=== PATIENT | male | born 1980 | race Caucasian/White ===

== ENCOUNTER → 2017-11-23 10:50 | Outpatient (POV) | payer MEDICAID, SELFPAY ==
[2017-11-23 11:19] VITALS: BP 128/80; PULSE 86; RESP 18; TEMP 36.8; O2SAT 98; BMI 27.7
--- NOTE | 2017-11-23 12:36 | HMH.PAINSOAP ---
[facility] Pain Management SOAP Note Subjective:: This patient is a pleasant 37-year-old white male who presents today to discuss recent insurance denial of his spinal cord stimulator trial. Patient has had a long-term low back pain after work injury that has resulted in lumbar back pain and lumbar radiculopathy. Patient has seen multiple providers. Patient is not currently a surgical candidate. Patient is having the majority of his pain down his right leg. Patient has spoken with several physicians including Dr. ANTONY Watson and Dr. Earl about spinal cord stimulation. He wishes to pursue this as a long-term solution to his pain. He would like to become more functional. Patient rates his pain as 7 out of 10 today. Patient has tried and failed 6-8 weeks of physical therapy. She has also tried and failed the dural steroid injections and facet joint injections. Spinal cord stimulation was suggested by his physician and psychologist back in 2012. To help relieve his pain and become more functional without the use of medications. Patient does not like the feeling of taking medications and states that it messes with his head. Patient also has a history of narcolepsy and the increased risk of sleepiness with his narcotics may create a problem. Patient states that his pain is achy and constant and shooting at times through his legs. ROS General: no recent weight change, no fever, narcolepsy Respiratory: no cough, no shortness of air, no recurring pulmonary infections Cardiovascular/Peripheral Vascular: No chest pain, No palpitations, no edema, no shortness of breath. Gastrointestinal: no incontinence, normal bowel movements reported Genitourinary: no incontinence Musculoskeletal: Low back pain, bilateral leg pain Psychiatric: normal mood/ affect Neurological: [denies weakness in extremities], [denies balance issues] Objective:: Physical Exam General: Alert and oriented x3, no acute distress, pleasant and cooperative, [on room air] Lungs: Resps E/U, Symmetrical chest expansion, Musculoskeletal: Flexion and extension of lumbar spine somewhat guarded secondary to pain, deep tendon reflexes normal, strength in upper and lower extremities [5/5], [abnormal gait noted] Neurological: speech clear, contract analyst equal, no gross sensory deficits Assessment:: Lumbar neuritis, degenerative disc disease of the lumbar spine, narcolepsy, lumbar radiculopathy Plan:: I believe spinal cord stimulation would be a good option for this patient. Help alleviate his pain and make him more functional. I believe that the spinal cord stimulator will be very effective in relieving his pain. We discussed different companies. Patient would like to pursue a Nuvectra trial. Given the patient's failure of physical therapy, medication therapy, anti-inflammatory, and injective therapy I believe that this may be the next step for the patient. Patient has seen neurology in the past with no relief of symptoms. This note was dictated using voice recognition software may contain errors or omissions
--- NOTE | 2017-11-23 12:47 | P.CONS_ITS ---
[facility] Pain Management SOAP Note Subjective:: This patient is a pleasant 37-year-old white male who presents today to discuss recent insurance denial of his spinal cord stimulator trial. Patient has had a long-term low back pain after work injury that has resulted in lumbar back pain and lumbar radiculopathy. Patient has seen multiple providers. Patient is not currently a surgical candidate. Patient is having the majority of his pain down his right leg. Patient has spoken with several physicians including Dr. ANTONY Watson and Dr. Earl about spinal cord stimulation. He wishes to pursue this as a long-term solution to his pain. He would like to become more functional. Patient rates his pain as 7 out of 10 today. Patient has tried and failed 6-8 weeks of physical therapy. She has also tried and failed the dural steroid injections and facet joint injections. Spinal cord stimulation was suggested by his physician and psychologist back in 2012. To help relieve his pain and become more functional without the use of medications. Patient does not like the feeling of taking medications and states that it messes with his head. Patient also has a history of narcolepsy and the increased risk of sleepiness with his narcotics may create a problem. Patient states that his pain is achy and constant and shooting at times through his legs. ROS General: no recent weight change, no fever, narcolepsy Respiratory: no cough, no shortness of air, no recurring pulmonary infections Cardiovascular/Peripheral Vascular: No chest pain, No palpitations, no edema, no shortness of breath. Gastrointestinal: no incontinence, normal bowel movements reported Genitourinary: no incontinence Musculoskeletal: Low back pain, bilateral leg pain Psychiatric: normal mood/ affect Neurological: [denies weakness in extremities], [denies balance issues] Objective:: Physical Exam General: Alert and oriented x3, no acute distress, pleasant and cooperative, [ on room air] Lungs: Resps E/U, Symmetrical chest expansion, Musculoskeletal: Flexion and extension of lumbar spine somewhat guarded secondary to pain, deep tendon reflexes normal, strength in upper and lower extremities [5/5], [abnormal gait noted] Neurological: speech clear, firer bisque kiln equal, no gross sensory deficits Assessment:: Lumbar neuritis, degenerative disc disease of the lumbar spine, narcolepsy, lumbar radiculopathy Plan:: I believe spinal cord stimulation would be a good option for this patient. Help alleviate his pain and make him more functional. I believe that the spinal cord stimulator will be very effective in relieving his pain. We discussed different companies. Patient would like to pursue a Nuvectra trial. Given the patient's failure of physical therapy, medication therapy, anti- inflammatory, and injective therapy I believe that this may be the next step for the patient. Patient has seen neurology in the past with no relief of symptoms. This note was dictated using voice recognition software may contain errors or omissions
== END ==
PROVIDERS: Family Provider Internal Medicine Adolescent Medicine; PCP Internal Medicine Adolescent Medicine; Visit Provider Clinical Nurse Specialist Family Health
DX: M54.16 Radiculopathy, lumbar region (principal)
CPT/HCPCS: 99212

== ENCOUNTER 2017-12-17 11:29 | Emergency (ER) | payer MEDICAID, SELFPAY ==
[2017-12-17 11:34] VITALS: BP 140/80; PULSE 106; RESP 20; TEMP 36.9; O2SAT 97; BMI 28.1
--- NOTE | 2017-12-17 12:53 | HMH.EDBACK ---
ED Disposition Clinical Impression: Back pain Qualifiers: Back pain location: low back pain Chronicity: acute Back pain laterality: bilateral Sciatica presence: with sciatica Sciatica laterality: bilateral sciatica Qualified Code(s): M54.42 - Lumbago with sciatica, left side; M54.41 - Lumbago with sciatica, right side Disposition: Home, Self-Care Condition on Discharge: Good Instructions: DI for Low Back Pain Prescriptions: Ketorolac Tromethamine [Toradol 10mg tablet] 10 mg PO Q6H 5 Days #20 tab methylPREDNISolone [Medrol] 4 mg PO DIRECTED #1 tab.ds.pk Referrals: Sandro Arora MD [Primary Care Provider] - - Critical Care Critical Care Time: No Attestation: On 12/17/17, the high probability of a clinically significant, sudden or life threatening deterioration of the following system(s) required my full and direct attention, intervention and personal management. The time I documented below is in addition to time spent performing reported procedures but includes the following listed in this critical care notation. Medical Decision Making - Gerard Inquiry Pt receiving controlled substance: No Gerard was queried for this patient: No Vital Signs: 12/17/17 11:34 Temperature 98.4 F Temperature Source Oral Pulse Rate [Right Radial] 106 H Respiratory Rate 20 Blood Pressure [Left Arm] 140/80 Blood Pressure Mean [Left Arm] 100 Blood Pressure Source [Left Arm] Automatic Cuff Blood Pressure Position [Left Arm] Supine 02 Sat by Pulse Oximetry 97 Oxygen Delivery Method Room Air Orders (Tests/Meds): ED MEDICATIONS Discontinued Medications Generic Name Dose Route Start Last Admin Trade Name Cortney PRN Reason Stop Dose Admin Ketorolac Tromethamine 60 mg 12/17/17 12:57 12/17/17 13:16 Toradol 60mg/2ml Vial IM 12/17/17 12:58 60 mg ONCE ONE Administration Medical Decision Narrative: his back pain is a cute exacrbation chronic back issues, as for his facial pain diagnoses include TMJ and Trigeminal neuralgia, no evidence glaucoma Back Pain HPI - General Chief Complaint: Back Pain/Injury Stated Complaint: back went out, no ao Time Seen by Provider: 12/17/17 12:00 Mode of Arrival: Ambulatory Source of Information: Patient Limitations: No Limitations Description of Symptoms (Recalled from ER Triage Doc. by RN): pain in lower back that radiates down left leg. history of disc herniations. pain in left holiness and down face that is painful to the touch. - History of Present Illness MD Complaint: back pain Onset (ago): hour(s) (4) Duration: constant Similar Symptoms Previously: Yes Location: lumbar spine Severity: moderate Quality: dull, aching Radiation: left leg Severity scale (1-10): 8 Exacerbating factors: immobilization Context: turning/twisting Associated symptoms: denies other symptoms Pertinent Issues R/T Back Pain: Vertebrae or disk problems w/o surgical repair Treatments prior to arrival: other medications - Related Data Home Medications Medication Instructions Recorded Confirmed Baclofen 10 mg PO TIDP PRN 12/17/17 12/17/17 Duloxetine HCl [Cymbalta] 60 mg PO HS 12/17/17 12/17/17 Gabapentin [Gabapentin 800mg Tab] 900 mg PO TID 12/17/17 12/17/17 Previous Rx's Medication Instructions Recorded Ketorolac Tromethamine [Toradol 10 mg PO Q6H 5 Days #20 tab 12/17/17 10mg tablet] methylPREDNISolone [Medrol] 4 mg PO DIRECTED #1 tab.ds.pk 12/17/17 Allergies Allergy/AdvReac Type Severity Reaction Status Date / Time No Known Allergies Allergy Unverified 09/21/17 14:55 [facility] History I have reviewed the patient's past medical history: Yes Medical History: Reports:: MRSA Denies:: Cancer, Diabetes Mellitus Type 1, Diabetes Mellitus Type 2 Amputation: No - Social History Smoking Status: Current every day smoker Tobacco Type: cigarettes # Packs/Day (cigarettes): 1 Alcohol Intake: never - Psychiatric History Expresses thoughts of harming self/others
--- NOTE | 2017-12-17 12:56 | ED_ITS ---
ED Disposition Clinical Impression: Back pain Qualifiers: Back pain location: low back pain Chronicity: acute Back pain laterality: bilateral Sciatica presence: with sciatica Sciatica laterality: bilateral sciatica Qualified Code(s): M54.42 - Lumbago with sciatica, left side; M54.41 - Lumbago with sciatica, right side Disposition: Home, Self-Care Condition on Discharge: Good Instructions: DI for Low Back Pain Prescriptions: Ketorolac Tromethamine [Toradol 10mg tablet] 10 mg PO Q6H 5 Days #20 tab methylPREDNISolone [Medrol] 4 mg PO DIRECTED #1 tab.ds.pk Referrals: Sandro Arora MD [Primary Care Provider] - - Critical Care Critical Care Time: No Attestation: On 12/17/17, the high probability of a clinically significant, sudden or life threatening deterioration of the following system(s) required my full and direct attention, intervention and personal management. The time I documented below is in addition to time spent performing reported procedures but includes the following listed in this critical care notation. Medical Decision Making - Gerard Inquiry Pt receiving controlled substance: No Gerard was queried for this patient: No Vital Signs: 12/17/17 11:34 Temperature 98.4 F Temperature Source Oral Pulse Rate [Right Radial] 106 H Respiratory Rate 20 Blood Pressure [Left Arm] 140/80 Blood Pressure Mean [Left Arm] 100 Blood Pressure Source [Left Arm] Automatic Cuff Blood Pressure Position [Left Arm] Supine 02 Sat by Pulse Oximetry 97 Oxygen Delivery Method Room Air Orders (Tests/Meds): ED MEDICATIONS Discontinued Medications Generic Name Dose Route Start Last Admin Trade Name Cortney PRN Reason Stop Dose Admin Ketorolac Tromethamine 60 mg 12/17/17 12:57 12/17/17 13:16 Toradol 60mg/2ml Vial IM 12/17/17 12:58 60 mg ONCE ONE Administration Medical Decision Narrative: his back pain is a cute exacrbation chronic back issues, as for his facial pain diagnoses include TMJ and Trigeminal neuralgia, no evidence glaucoma Back Pain HPI - General Chief Complaint: Back Pain/Injury Stated Complaint: back went out, no ao Time Seen by Provider: 12/17/17 12:00 Mode of Arrival: Ambulatory Source of Information: Patient Limitations: No Limitations Description of Symptoms (Recalled from ER Triage Doc. by RN): pain in lower back that radiates down left leg. history of disc herniations. pain in left taoist and down face that is painful to the touch. - History of Present Illness MD Complaint: back pain Onset (ago): hour(s) (4) Duration: constant Similar Symptoms Previously: Yes Location: lumbar spine Severity: moderate Quality: dull, aching Radiation: left leg Severity scale (1-10): 8 Exacerbating factors: immobilization Context: turning/twisting Associated symptoms: denies other symptoms Pertinent Issues R/T Back Pain: Vertebrae or disk problems w/o surgical repair Treatments prior to arrival: other medications - Related Data Home Medications Medication Instructions Recorded Confirmed Baclofen 10 mg PO TIDP PRN 12/17/17 12/17/17 Duloxetine HCl [Cymbalta] 60 mg PO HS 12/17/17 12/17/17 Gabapentin [Gabapentin 800mg Tab] 900 mg PO TID 12/17/17 12/17/17 Previous Rx's Medication Instructions Recorded Ketorolac Tromethamine [Toradol 10 mg PO Q6H
[2017-12-17 14:10] VITALS: BP 127/75; PULSE 72; RESP 20; TEMP 37.1; O2SAT 96
== END 2017-12-17 14:13 | disposition home or self-care (01) ==
PROVIDERS: Emergency Provider Family Medicine; Family Provider Internal Medicine Adolescent Medicine; PCP Internal Medicine Adolescent Medicine
DX: M54.42 Lumbago with sciatica, left side (principal); F17.210 Nicotine dependence, cigarettes, uncomplicated; Z86.14 Personal history of Methicillin resistant Staphylococcus aureus infection
CPT/HCPCS: 96372; 99281

== ENCOUNTER → 2018-01-10 13:27 | Outpatient (CLI) | payer MEDICAID, SELFPAY ==
[2018-01-10 14:13] LABS: Basophils % 0.4 % (0.1-2.0); Eosinophils # 0.2 K/mm3 (0.0-0.4); Eosinophils % 2.1 % (0.1-12.0); Hemoglobin 15.3 g/dL (14.1-18.0); Lymphocytes # 2.8 K/mm3 (0.7-4.5); Mean Corpuscular HGB Conc 32.5 g/dL (31.8-35.4); Mean Corpuscular Hemoglobin 30.2 pg (27.0-31.2); Mean Platelet Volume 7.7 fl (7.4-10.4); Monocytes # 0.4 K/mm3 (0.1-1.0); Monocytes % 5.3 % (1.7-9.3); Neutrophils # 4.7 K/mm3 (1.8-7.8); Neutrophils % 58.3 % (37.0-80.0); Platelet Count 268 K/mm3 (142-424); Red Blood Count 5.06 M/mm3 (4.60-6.20); Red Cell Distribution Width 12.6 % (11.5-17.5); White Blood Count 8.1 K/mm3 (4.8-10.8)
[2018-01-10 14:39] LABS: Anion Gap 12.4 mEq/L (5-15); Blood Urea Nitrogen 10 mg/dL (7-18); Carbon Dioxide 31 mmol/L (21.0-32.0); Chloride 102 mmol/L (98-107); Creatinine,Serum 0.86 mg/dL (0.70-1.30); Estimated Glomerular Filt Rate 100 ml/min (>60); GFR (African American) 120 ML/MIN (>60); Glucose 92 mg/dL (74-106); Potassium 4.4 mmoL/L (3.5-5.1); Sodium 141 mmol/L (136-145)
== END ==
PROVIDERS: Visit Provider Clinical Nurse Specialist Family Health
DX: Z01.812 Encounter for preprocedural laboratory examination (principal)
CPT/HCPCS: 36415; 80048; 85025

== ENCOUNTER → 2018-01-17 14:26 | Outpatient (POV) | payer MEDICAID, SELFPAY ==
[2018-01-17 14:46] VITALS: BP 99/50; PULSE 71; RESP 20; BMI 26.7
--- NOTE | 2018-01-17 15:58 | HMH.PMPROC ---
- Procedure Date: 01/17/18 Time: 14:46 Anesthesiologist:: Radha Rose APRN Complications:: None Pre-procedure Diagnosis:: Lumbar neuritis, degenerative disc disease of the lumbar spine, lumbar radiculopathy Post-procedure Diagnosis:: Lumbar neuritis, degenerative disc disease of the lumbar spine, lumbar radiculopathy Indications for Procedure:: Patient is a pleasant 37-year-old white male who presents today for epidural spinal cord stimulator trial lead removal. Patient has had a long-term low back pain after work injury. Patient has seen multiple providers and spoken with several of them about neuro stimulation. He wishes to pursue this as a long solution for his pain. Patient states that with a neurostimulator his pain is a 1 out of 10 today. Patient has tried and failed 6-8 weeks of physical therapy, steroid injections and facet joint injections, medications. Procedure Details:: Informed consent was obtained and the risks and benefits of the procedure were explained to the patient. The patient was taken to the procedure room where noninvasive monitoring was placed including noninvasive blood pressure cuff and O2 monitor. Patient was positioned in a standing position leaning forward. The bandage was removed from the leads and the area was cleansed with chlorhexidine as a cleansing solution. The leads were removed in their entirety. Patient's leads were intact. Insertion site has no sign/symptoms of infection. Bandages were placed over the site. And tolerated the procedure well Plan and Disposition:: We will go ahead and schedule this patient for neurostimulator implant. Patient has done extremely well with it. Patient had 80-90% relief of all of his pain symptoms. Patient's tried and failed anti-inflammatories, medications, injections, physical therapy, previous surgery. Patient has had a successful neuropsychological evaluation. He has a history of narcolepsy and his risk of sleepiness with narcotics which is creates a problem for his pain management. I believe that this will be the answer to long-term functionality. This note was dictated using voice recognition software and may contain errors or omissions
--- NOTE | 2018-01-17 16:01 | P.PCN_ITS ---
- Procedure Date: 01/17/18 Time: 14:46 Anesthesiologist:: aRdha Rose APRN Complications:: None Pre-procedure Diagnosis:: Lumbar neuritis, degenerative disc disease of the lumbar spine, lumbar radiculopathy Post-procedure Diagnosis:: Lumbar neuritis, degenerative disc disease of the lumbar spine, lumbar radiculopathy Indications for Procedure:: Patient is a pleasant 37-year-old white male who presents today for epidural spinal cord stimulator trial lead removal. Patient has had a long-term low back pain after work injury. Patient has seen multiple providers and spoken with several of them about neuro stimulation. He wishes to pursue this as a long solution for his pain. Patient states that with a neurostimulator his pain is a 1 out of 10 today. Patient has tried and failed 6-8 weeks of physical therapy, steroid injections and facet joint injections, medications. Procedure Details:: Informed consent was obtained and the risks and benefits of the procedure were explained to the patient. The patient was taken to the procedure room where noninvasive monitoring was placed including noninvasive blood pressure cuff and O2 monitor. Patient was positioned in a standing position leaning forward. The bandage was removed from the leads and the area was cleansed with chlorhexidine as a cleansing solution. The leads were removed in their entirety. Patient's leads were intact. Insertion site has no sign/symptoms of infection. Bandages were placed over the site. And tolerated the procedure well Plan and Disposition:: We will go ahead and schedule this patient for neurostimulator implant. Patient has done extremely well with it. Patient had 80-90% relief of all of his pain symptoms. Patient's tried and failed anti-inflammatories, medications , injections, physical therapy, previous surgery. Patient has had a successful neuropsychological evaluation. He has a history of narcolepsy and his risk of sleepiness with narcotics which is creates a problem for his pain management. I believe that this will be the answer to long-term functionality. This note was dictated using voice recognition software and may contain errors or omissions
== END ==
PROVIDERS: Family Provider Internal Medicine Adolescent Medicine; PCP Internal Medicine Adolescent Medicine; Visit Provider Clinical Nurse Specialist Family Health
DX: M51.16 Intervertebral disc disorders with radiculopathy, lumbar region (principal)
CPT/HCPCS: 99212

== ENCOUNTER → 2018-02-08 10:24 | Outpatient (POV) | payer MEDICAID, SELFPAY ==
[2018-02-08 11:07] VITALS: BP 153/100; PULSE 78; RESP 20; BMI 26.7
--- NOTE | 2018-02-08 12:29 | HMH.PAINSOAP ---
[facility] Pain Management SOAP Note Subjective:: This patient is a pleasant 37-year-old white male who presents today for follow-up after neurostimulator implant. Patient is currently doing very well he states that he is 90-100% pain-free. Patient has had his stitches removed and the site are intact, clean and dry, with no sign symptoms of infection. Patient is doing extremely well. We discussed continuing to do light activity. ROS General: no recent weight change, no fever, no sleep disturbances Respiratory: no cough, no shortness of air, no recurring pulmonary infections Cardiovascular/Peripheral Vascular: No chest pain, No palpitations, no edema, no shortness of breath. Gastrointestinal: no incontinence, normal bowel movements reported Genitourinary: no incontinence Musculoskeletal: Back pain, bilateral leg pain Psychiatric: normal mood/ affect Neurological: [denies weakness in extremities], [denies balance issues] Objective:: Physical Exam General: Alert and oriented x3, no acute distress, pleasant and cooperative, [on room air] Lungs: Resps E/U, Symmetrical chest expansion, Eyes: PERRL Musculoskeletal: Flexion and extension of lumbar spine somewhat guarded secondary to pain, deep tendon reflexes normal, strength in upper and lower extremities [5/5], normal gait noted Neurological: speech clear, heel top lift splitter equal, no gross sensory deficits Assessment:: Degenerative disc disease of the lumbar spine with lumbar radiculopathy symptoms and postlaminectomy syndrome of the lumbar spine Plan:: I will follow-up with this patient in 1 month to ensure he is healing well. And then we will follow-up with him every 3-6 months as needed. Patient has been instructed to call the office if he needs anything prior to his visit. This note was dictated using voice recognition software and may contain errors or omissions
--- NOTE | 2018-02-08 12:32 | P.CONS_ITS ---
[facility] Pain Management SOAP Note Subjective:: This patient is a pleasant 37-year-old white male who presents today for follow- up after neurostimulator implant. Patient is currently doing very well he states that he is 90-100% pain-free. Patient has had his stitches removed and the site are intact, clean and dry, with no sign symptoms of infection. Patient is doing extremely well. We discussed continuing to do light activity. ROS General: no recent weight change, no fever, no sleep disturbances Respiratory: no cough, no shortness of air, no recurring pulmonary infections Cardiovascular/Peripheral Vascular: No chest pain, No palpitations, no edema, no shortness of breath. Gastrointestinal: no incontinence, normal bowel movements reported Genitourinary: no incontinence Musculoskeletal: Back pain, bilateral leg pain Psychiatric: normal mood/ affect Neurological: [denies weakness in extremities], [denies balance issues] Objective:: Physical Exam General: Alert and oriented x3, no acute distress, pleasant and cooperative, [ on room air] Lungs: Resps E/U, Symmetrical chest expansion, Eyes: PERRL Musculoskeletal: Flexion and extension of lumbar spine somewhat guarded secondary to pain, deep tendon reflexes normal, strength in upper and lower extremities [5/5], normal gait noted Neurological: speech clear, cook supervisor equal, no gross sensory deficits Assessment:: Degenerative disc disease of the lumbar spine with lumbar radiculopathy symptoms and postlaminectomy syndrome of the lumbar spine Plan:: I will follow-up with this patient in 1 month to ensure he is healing well. And then we will follow-up with him every 3-6 months as needed. Patient has been instructed to call the office if he needs anything prior to his visit. This note was dictated using voice recognition software and may contain errors or omissions
== END ==
PROVIDERS: Family Provider Internal Medicine Adolescent Medicine; PCP Internal Medicine Adolescent Medicine; Visit Provider Clinical Nurse Specialist Family Health
DX: M54.16 Radiculopathy, lumbar region (principal)
CPT/HCPCS: 99212

== ENCOUNTER → 2018-03-08 08:30 | Outpatient (POV) | payer MEDICAID, SELFPAY ==
[2018-03-08 08:53] VITALS: BP 160/98; PULSE 71; RESP 20; O2SAT 98; BMI 26.9
--- NOTE | 2018-03-08 09:15 | HMH.PAINSOAP ---
[facility] Pain Management SOAP Note Subjective:: Patient pleasant 37-year-old white male who presents today for follow-up. Patient had neurostimulator implant. Patient states he is 90-100% pain-free. Patient cites are healed and have no sign symptoms of infection. Patient is doing extremely well. Patient rates his pain a 1 out of 10 today. ROS General: no recent weight change, no fever, no sleep disturbances Respiratory: no cough, no shortness of air, no recurring pulmonary infections Cardiovascular/Peripheral Vascular: No chest pain, No palpitations, no edema, no shortness of breath. Gastrointestinal: no incontinence, normal bowel movements reported Genitourinary: no incontinence Musculoskeletal: Back pain, bilateral leg pain Psychiatric: normal mood/ affect Neurological: [denies weakness in extremities], [denies balance issues] Objective:: Physical Exam General: Alert and oriented x3, no acute distress, pleasant and cooperative, [on room air] Lungs: Resps E/U, Symmetrical chest expansion, Eyes: PERRL Musculoskeletal: Flexion and extension of lumbar spine somewhat guarded secondary to pain, deep tendon reflexes normal, strength in upper and lower extremities [5/5], normal gait noted Neurological: speech clear, supervisor slate splitting equal, no gross sensory deficits Assessment:: Degenerative disc disease of lumbar spine with lumbar radiculopathy symptoms and postlaminectomy syndrome of the lumbar spine Plan:: I will follow-up with this patient in 6 months. Patient is doing extremely well. He has been instructed to call the office if he needs anything prior to his visit. This note was dictated using voice recognition software and may contain errors or omissions
== END ==
PROVIDERS: Family Provider Internal Medicine Adolescent Medicine; PCP Internal Medicine Adolescent Medicine; Visit Provider Clinical Nurse Specialist Family Health
DX: M54.16 Radiculopathy, lumbar region (principal)
CPT/HCPCS: 99212

== ENCOUNTER → 2018-11-01 11:15 | Outpatient (POV) | payer MEDICAID, SELFPAY ==
[2018-11-01 11:28] VITALS: BP 131/89; PULSE 86; RESP 18; O2SAT 99; BMI 27.5
--- NOTE | 2018-11-01 12:21 | HMH.PAINSOAP ---
[facility] Pain Management SOAP Note Subjective:: Patient is a pleasant 38-year-old white male who presents today for follow-up. Patient is doing well with his neurostimulator stating that is very beneficial. He is here to get some programming done by the key account representative. Patient states his pain in his back is about a 6 out of 10 today. Patient states that his back pain has gotten quite severe in the last few days with activity. It has been sometime since he had an epidural steroid injection. I believe it would be beneficial for him. ROS General: no recent weight change, no fever, no sleep disturbances Respiratory: no cough, no shortness of air, no recurring pulmonary infections Cardiovascular/Peripheral Vascular: No chest pain, No palpitations, no edema, no shortness of breath. Gastrointestinal: no incontinence, normal bowel movements reported Genitourinary: no incontinence Musculoskeletal: Back pain, leg pain at times Psychiatric: normal mood/ affect Neurological: [denies weakness in extremities], [denies balance issues] Objective:: Physical Exam General: Alert and oriented x3, no acute distress, pleasant and cooperative, [on room air] Lungs: Resps E/U, Symmetrical chest expansion, Eyes: PERRL Musculoskeletal: Flexion and extension of lumbar spine somewhat guarded secondary to pain, deep tendon reflexes normal, strength in upper and lower extremities [5/5], slightly antalgic gait noted, positive straight leg raise test bilaterally at 30 degrees Neurological: speech clear, paper hanger equal, no gross sensory deficits Assessment:: Degenerative disc disease lumbar spine with lumbar radiculopathy symptoms and postlaminectomy syndrome lumbar spine Plan:: Patient will be reprogrammed today by the key account representative. Patient will be set up for an L4-L5 lumbar epidural steroid injection given his symptomology I believe it would be beneficial. He is continuing with his anti-inflammatories and home stretching routine. He is not on any anticoagulation therapy I will follow-up with him after his injection. Dr. Lai has reviewed this note and agrees with this plan of care. This note was dictated using voice recognition software and may contain errors or omissions
== END ==
PROVIDERS: PCP Internal Medicine Adolescent Medicine; Visit Provider Clinical Nurse Specialist Family Health
DX: M51.16 Intervertebral disc disorders with radiculopathy, lumbar region (principal); M96.1 Postlaminectomy syndrome, not elsewhere classified
CPT/HCPCS: 99213

== ENCOUNTER → 2018-12-12 12:50 | Outpatient (POV) | payer MEDICAID, SELFPAY ==
--- NOTE | 2018-12-12 12:59 | HMH.PAINSOAP ---
[facility] Pain Management SOAP Note Subjective:: Patient is a pleasant 38-year-old white male who presents today for follow-up after lumbar epidural steroid injection. Patient states he got 80% relief rating his pain a 5 out of 10 today. He states he is much more functional. Patient has had this relief for over a month. Patient still having some relief however he would like to try to get some additional decrease in his pain. Patient is continuing a home stretching program and is on anti-inflammatories. ROS General: no recent weight change, no fever, no sleep disturbances Respiratory: no cough, no shortness of air, no recurring pulmonary infections Cardiovascular/Peripheral Vascular: No chest pain, No palpitations, no edema, no shortness of breath. Gastrointestinal: no incontinence, normal bowel movements reported Genitourinary: no incontinence Musculoskeletal: Back pain, leg pain at times Psychiatric: normal mood/ affect Neurological: [denies weakness in extremities], [denies balance issues] Objective:: Physical Exam General: Alert and oriented x3, no acute distress, pleasant and cooperative, [on room air] Lungs: Resps E/U, Symmetrical chest expansion, Eyes: PERRL Musculoskeletal: Flexion and extension of lumbar spine somewhat guarded secondary to pain, deep tendon reflexes normal, strength in upper and lower extremities [5/5], slightly antalgic gait noted Neurological: speech clear, still worker helper equal, no gross sensory deficits Assessment:: Degenerative disc disease lumbar spine with lumbar radiculopathy Plan:: We will repeat his L4-L5 lumbar epidural steroid injection given the efficacy of the last one. He is not on any anticoagulation therapy. He is continuing home stretching routine. I will follow-up with the patient after his injection and reassess his symptoms at that time. Dr. Lai has reviewed this note and agrees with this plan of care. This note was dictated using voice recognition software and may contain errors or omissions
[2018-12-12 13:06] VITALS: BP 150/98; PULSE 78; RESP 18; O2SAT 98; BMI 27.5
== END ==
PROVIDERS: PCP Internal Medicine Adolescent Medicine; Visit Provider Clinical Nurse Specialist Family Health
DX: M51.16 Intervertebral disc disorders with radiculopathy, lumbar region (principal)
CPT/HCPCS: 99213

== ENCOUNTER → 2019-01-17 10:12 | Outpatient (POV) | payer MEDICAID, SELFPAY ==
[2019-01-17 10:23] VITALS: BP 149/97; PULSE 95; RESP 18; O2SAT 98; BMI 27.5
--- NOTE | 2019-01-17 10:47 | HMH.PAINSOAP ---
[facility] Pain Management SOAP Note Subjective:: Is a pleasant 38-year-old white male who presents today for follow-up after lumbar epidural steroid injection. Patient is doing well with his neurostimulator. Patient had 80% relief with his epidural. Patient overall doing well. He would like to repeat this. ROS General: no recent weight change, no fever, no sleep disturbances Respiratory: no cough, no shortness of air, no recurring pulmonary infections Cardiovascular/Peripheral Vascular: No chest pain, No palpitations, no edema, no shortness of breath. Gastrointestinal: no incontinence, normal bowel movements reported Genitourinary: no incontinence Musculoskeletal: Back pain, leg pain Psychiatric: normal mood/ affect Neurological: [denies weakness in extremities], [denies balance issues] Objective:: Physical Exam General: Alert and oriented x3, no acute distress, pleasant and cooperative, [on room air] Lungs: Resps E/U, Symmetrical chest expansion, Eyes: PERRL Musculoskeletal: Flexion and extension of lumbar spine somewhat guarded secondary to pain, deep tendon reflexes normal, strength in upper and lower extremities [5/5], antalgic gait noted, positive straight leg raise test at 30 degrees Neurological: speech clear, radio frequency engineer equal, no gross sensory deficits Assessment:: Degenerative disc disease lumbar spine with lumbar radiculopathy Plan:: We will schedule a third lumbar epidural steroid injection for the patient. This will be at L4-L5. Patient is done extremely well with these. He would like to finish out the set of 3. I believe this is appropriate. I will follow-up with him after his injection and reassess his symptoms at that time. Dr. Lai has reviewed this note and agrees with this plan of care. This note was dictated using voice recognition software and may contain errors or omissions
--- NOTE | 2019-01-17 10:50 | P.CONS_ITS ---
[facility] Pain Management SOAP Note Subjective:: Is a pleasant 38-year-old white male who presents today for follow-up after lumbar epidural steroid injection. Patient is doing well with his neurostimulator. Patient had 80% relief with his epidural. Patient overall doing well. He would like to repeat this. ROS General: no recent weight change, no fever, no sleep disturbances Respiratory: no cough, no shortness of air, no recurring pulmonary infections Cardiovascular/Peripheral Vascular: No chest pain, No palpitations, no edema, no shortness of breath. Gastrointestinal: no incontinence, normal bowel movements reported Genitourinary: no incontinence Musculoskeletal: Back pain, leg pain Psychiatric: normal mood/ affect Neurological: [denies weakness in extremities], [denies balance issues] Objective:: Physical Exam General: Alert and oriented x3, no acute distress, pleasant and cooperative, [on room air] Lungs: Resps E/U, Symmetrical chest expansion, Eyes: PERRL Musculoskeletal: Flexion and extension of lumbar spine somewhat guarded secondary to pain, deep tendon reflexes normal, strength in upper and lower extremities [5/5], antalgic gait noted, positive straight leg raise test at 30 degrees Neurological: speech clear, poke in equal, no gross sensory deficits Assessment:: Degenerative disc disease lumbar spine with lumbar radiculopathy Plan:: We will schedule a third lumbar epidural steroid injection for the patient. This will be at L4-L5. Patient is done extremely well with these. He would like to finish out the set of 3. I believe this is appropriate. I will follow- up with him after his injection and reassess his symptoms at that time. Dr. Lai has reviewed this note and agrees with this plan of care. This note was dictated using voice recognition software and may contain errors or omissions
== END ==
PROVIDERS: PCP Internal Medicine Adolescent Medicine; Visit Provider Clinical Nurse Specialist Family Health
DX: M51.16 Intervertebral disc disorders with radiculopathy, lumbar region (principal)
CPT/HCPCS: 99212

== ENCOUNTER → 2019-06-12 10:46 | Outpatient (CLI) | payer MEDICAID, SELFPAY ==
--- NOTE | 2019-06-12 12:48 | CT_ITS ---
PROCEDURE: CT ANKLE LT WO/W CON CLINICAL HISTORY: Evaluate tear of ATFL,CFL and Deltoid Ligaments Foot pain following injury, left ankle pain and swelling COMPARISON: Ankle L from 05/15/2019 TECHNIQUE: Axial images obtained with sagittal and coronal reformats. All CT scans at the facility use one or more dose reduction, viz: automated exposure control, ma/kV adjustment per patient size (including targeted exams where dose is matched to indication, i.e. head), or iterative reconstruction technique. FINDINGS: There is a nondisplaced fracture extending from the posterior and lateral aspect of the posterior subtalar facet of the talus extending anteriorly in oblique fashion exiting medially at the talar neck. The fracture extends to the talar dome. No other fractures are evident. The Achilles tendon appears intact. There is a small ankle joint effusion. There is some soft tissue swelling laterally at the region of the ATFL and the PT FL. Cannot confirm the integrity of the talofibular or tibiofibular ligaments or of the deltoid ligament based on this exam. The posterior tibialis, flexor hallucis longus and flexor digitorum longus tendons have an unremarkable appearance. Partial tear is may not be seen by CT. The prone ill tendons are not adequately evaluated with CT inter somewhat obscured at the lateral malleolar region. IMPRESSION: Nondisplaced fracture of the talus with extension into the posterior subtalar joint, the neck of the talus, and the talar dome. Dictated by: Nimesh Knowles MD 06/13/2019 15:41 Electronically signed by Nimesh Knowles MD in [place] 06/13/2019 15:41
== END ==
PROVIDERS: PCP Internal Medicine Adolescent Medicine; Visit Provider Podiatrist
DX: M25.572 Pain in left ankle and joints of left foot (principal); S93.492D Sprain of other ligament of left ankle, subsequent encounter; S99.912D Unspecified injury of left ankle, subsequent encounter
CPT/HCPCS: 73702; Q9967

== ENCOUNTER 2021-09-14 16:33 | Emergency (ER) | payer OTHER, SELFPAY ==
[2021-09-14 16:45] VITALS: BP 148/89; PULSE 106; RESP 19; TEMP 36.9; O2SAT 99; BMI 25.7
--- NOTE | 2021-09-14 16:52 | XR_ITS ---
PROCEDURE INFORMATION: Exam: XR Lumbosacral Spine Exam date and time: 09/14/2021 4:52 PM Age: 41 years old Clinical indication: Injury or trauma; Fall; Blunt trauma (contusions or hematomas); Prior surgery; Surgery date: 6+ months; Surgery type: Spinal stimulator placed due to old injury to back; Patient HX: Patient missed a step and fell. Severe low back pain with difficulty ambulating. TECHNIQUE: Imaging protocol: XR of the lumbosacral spine. Views: 2 or 3 views. COMPARISON: LSWO CT LUMBAR SPINE W/O CONTRAST 04/23/2017 9:49 PM FINDINGS: Bones/joints: Normal. No acute fracture. Normal alignment. Soft tissues: Unremarkable. Dorsal column stimulator in good position. IMPRESSION: No acute findings.
--- NOTE | 2021-09-14 16:58 | HMH.EDUTC ---
[facility] [place] Clinical Impression: Back pain Qualifiers: Back pain location: low back pain Chronicity: acute Back pain laterality: left Sciatica presence: with sciatica Sciatica laterality: sciatica of left side Qualified Code(s): M54.42 - Lumbago with sciatica, left side Disposition: Home, Self-Care Condition on Discharge: Good Instructions: DI for Low Back Pain Additional Instructions: follow up with pcp for more testing if needed start steroid tomorrow ice and heat as needed tylenol or motrin as needed return if nay worsening or no improvement Prescriptions: predniSONE [Prednisone 20mg Tab] 20 mg PO BID #10 tab Transmission Status: Pending to [facility] Referrals: Michael Lane MD [Primary Care Provider] - Time of Disposition: 17:51 Medical Decision Making - Gerard Inquiry Pt receiving controlled substance: No Vital Signs: 09/14/21 16:45 Temperature 98.4 F Temperature Source Oral Pulse Rate [Right Brachial] 106 H Respiratory Rate 19 Blood Pressure [Right Arm] 148/89 H Blood Pressure Mean [Right Arm] 108 Blood Pressure Position [Right Arm] Sitting 02 Sat by Pulse Oximetry 99 [facility] [place] - General Chief complaint: Urgent Treatment Center Stated complaint: back pain Time Seen by Provider: 09/14/21 16:58 Mode of Arrival: Ambulatory Source of Information: Patient Limitations: No Limitations Description of Symptoms (Recalled from Triage Doc. by RN): PT STATES THAT WEDNESDAY NIGHT HE WENT TO STEP OFF OF HIS PORCH AND MISSED A STEP WHERE HE JERKED AND NOW FEELS LIKE HE MAY HAVE A HERNIATED DISC IN LOWER BACK WHICH IS A FREQUENT PROBLEM THAT REACCURES HEENT Symptoms (Recalled from RN notes): No Resp Symptoms (Recalled from RN notes): No Skin Symptoms (Recalled from RN notes): No MS Symptoms (Recalled from RN notes): Yes Functional Status (Recalled from RN notes): WNL - History of Present Illness Provider Complaint: 41 yr old male presents for low back pain. pt states on night he stepped off step and felt a jerk in low back. Pt states he has a herniated disk in back and this flares up at times. no loww of bowel or bladder - Related Data Home Medications Medication Instructions Recorded Confirmed Baclofen 10 mg PO TIDP PRN 12/17/17 06/14/19 Duloxetine HCl [Cymbalta] 60 mg PO HS 12/17/17 06/14/19 Gabapentin [Gabapentin 800mg Tab] 900 mg PO TID 12/17/17 06/14/19 Previous Rx's Medication Instructions Recorded Ibuprofen [Ibuprofen 600mg 600 mg PO Q6HP PRN #30 tab 05/15/19 Tablet] predniSONE [Prednisone 20mg 20 mg PO BID #10 tab 09/14/21 Tab] Allergies Allergy/AdvReac Type Severity Reaction Status Date / Time No Known Allergies Allergy Verified 06/14/19 14:21 - Worker's Comp Is this a Worker's Comp case?: No [facility] History - Hepatitis A Screen Drug use history?: No High risk sexual behaviors?: No History of sexually transmitted infection?: No Currently employed?: No Childcare worker?: No Do you have indoor plumbing?: Yes Do you have electricity?: Yes Attestation statement:: This patient has been screened for Hepatitis A risk factors. Medical History: Reports:: Chronic Obstructive Pulmonary Disease (COPD) Denies:: Cancer, Diabetes Mellitus Type 1, Diabetes Mellitus Type 2, MRSA, Seizures Other Medical History: Reports: Other. 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
[2021-09-14 18:00] VITALS: BP 148/89; PULSE 106; RESP 19; TEMP 36.9; O2SAT 99
== END 2021-09-14 18:11 | disposition home or self-care (01) ==
PROVIDERS: Emergency Provider Nurse Practitioner Family; PCP Emergency Medicine
DX: M54.42 Lumbago with sciatica, left side (principal); J44.9 Chronic obstructive pulmonary disease, unspecified; F17.210 Nicotine dependence, cigarettes, uncomplicated
CPT/HCPCS: 72100; 96372; 99202; G0463

== ENCOUNTER → 2022-06-10 08:57 | Outpatient (POV) | payer OTHER, SELFPAY ==
[2022-06-10 09:22] VITALS: BP 135/87; PULSE 80; RESP 18; TEMP 36.5; O2SAT 99; BMI 23.3
--- NOTE | 2022-06-10 09:40 | EXP.PAIN.OV ---
HPI Data of Consult Patient: new to practice Consult date: 06/10/22 Requesting Physician: Subha Leonardo APRN Consult Narrative Reason for consult: Low back pain, left leg and hip pain History of present illness: Mr. Galarza is a 41 year old male who presents as a new patient. He is a referral from Dr. Lane. Today the patient rates his pain a 4 out of 10 and states its in his low back that radiates into his left hip down his left leg and stops at the knee. Patient describes this as a ache, throbbing sensation that is worse with increased activity. Patient denies any new trauma or injury to the site. 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 Patient was a previous patient of ours in 2018 where he did have multiple injective therapies that provided significant improvement of his symptoms. Patient is managed with gabapentin 800 mg [address] Lane. Patient denies any side effects from these medications. He states these medications are adequately helping manage his pain. Patient is interested in injective therapy at this time. His Gerard is [phone]. It is been reviewed and appropriate. CC: Subha Leonardo APRN [facility] Medical History (Updated 06/10/22 @ 09:46 by Subha Leonardo APRN) ADD (attention deficit disorder) COPD (chronic obstructive pulmonary disease) DDD (degenerative disc disease), lumbar Hx MRSA infection Narcolepsy Surgical History (Updated 06/10/22 @ 09:36 by Brenna Merrill RN) Hx of tonsillectomy Social History Smoking Status: Current every day smoker tobacco type: cigarettes packs per day: 1 alcohol intake: never substance use type: denies use current occupational status: employed Travel in the last 8 weeks: None household members: family housing: house current occupation: [employer] current occupational exposures/hazards: No caffeine: No Review of Systems Review of Systems Review of systems:: pertinent systems reviewed and negative unless documented below Review of systems (narrative): Review of Systems: General: No recent weight changes, no fever, no sleep disturbances Respiratory: No cough, no shortness of air, no recurring pulmonary infections Cardiovascular/peripheral vascular: No chest pain, no palpitations, no edema, no shortness of breath Gastrointestinal: No new onset incontinence, normal bowel movements reported Genitourinary: No new onset incontinence Musculoskeletal: Low back pain, left leg and hip pain Psychiatric: [Normal mood/affect] Neurological: [Denies weakness in extremities], [denies balance issues] Meds Home Medications and Allergies Home Medications Medication Instructions Recorded Confirmed Type baclofen 20 mg tablet 10 mg PO TIDP PRN pain 12/17/17 06/10/22 History duloxetine 60 mg capsule,delayed 60 mg PO HS Pain 12/17/17 06/10/22 History release gabapentin 800 mg tablet 900 mg PO TID Pain 12/17/17 06/10/22 History ibuprofen 600 mg tablet 600 mg PO Q6HP PRN Mild Pain #30 05/15/19 06/10/22 Rx tabs prednisone 20 mg tablet 20 mg PO BID Pain 06/10/22 06/10/22 History New Prescriptions to Start Prescriptions: Allergies Allergy/AdvReac Type Severity Reaction Status Date / Time No Known Allergies Allergy Verified 06/14/19 14:21 Objective Vital signs: Temp Pulse Resp BP Pulse Ox 97.7 F 80 18 135/87 99 06/10/22 09:22 06/10/22 09:22 06/10/22 09:22 06/10/22 09:22 06/10/22 09:22 Narrative: Physical Exam: General: Alert and oriented x3, no acute distress, pleasant and cooperative Lungs: Respirations even and unlabored, symmetrical chest expansion Eyes: PERRL Musculoskeletal: Flexion and extension of lumbar [spine] somewhat guarded secondary to pain, [antalgic gait noted]. Point tenderness along the left SI and left hip and left Monique's, Coby's, compression, Gaenslen's and distraction exam Neuro
== END ==
PROVIDERS: Visit Provider Nurse Practitioner Family
DX: M51.36 Other intervertebral disc degeneration, lumbar region (principal); M47.816 Spondylosis without myelopathy or radiculopathy, lumbar region; M48.061 Spinal stenosis, lumbar region without neurogenic claudication; M46.1 Sacroiliitis, not elsewhere classified
CPT/HCPCS: 99202; G0463